=== PATIENT | female | born 1980 | race Caucasian/White ===

== ENCOUNTER 2018-08-28 09:56 | Emergency (ER) | payer OTHER ==
[~2018-08-28] VITALS: Ht 154.9 cm; Wt 104.3 kg
[~2018-08-28 09:56] MED LIST: FLEXERIL5 MG PO; NKHM; PEN-VEE K500 MG PO; ROBAXIN750 MG PO; TRAMADOL HCL50 MG PO; VOLTAREN50 M1 PO
[2018-08-28] MEDS ORDERED: KETOROLAC10 MG PO (12:02)
[2018-08-28] MEDS ORDERED: CYCLOBENZAPRINE5 M3 PO (12:02)
== END 2018-08-28 12:29 | disposition home or self-care (01) ==
LOC: ED 09:56
DX: S39.012A Strain of muscle, fascia and tendon of lower back, initial encounter (principal); S29.012A Strain of muscle and tendon of back wall of thorax, initial encounter; F17.200 Nicotine dependence, unspecified, uncomplicated; Z88.6 Allergy status to analgesic agent; W17.2XXA Fall into hole, initial encounter; Y93.89 Activity, other specified; Y92.89 Other specified places as the place of occurrence of the external cause; Y99.8 Other external cause status

== ENCOUNTER 2023-09-24 08:44 | Emergency (ER) | payer OTHER ==
[~2023-09-24] VITALS: Ht 165.1 cm; Wt 113.4 kg
[~2023-09-24 08:44] MED LIST changes: +CYCLOBENZAPRINE5 M3 PO; +KETOROLAC10 MG PO
[2023-09-24] MEDS ORDERED: AMOX-CLAV 875-1 EACH PO (09:21)
[2023-09-24] MEDS ORDERED: MELOXICAM15 MG PO (09:21)
== END 2023-09-24 09:25 | disposition home or self-care (01) ==
LOC: ED 08:44
DX: K04.7 Periapical abscess without sinus (principal); K02.9 Dental caries, unspecified; R22.9 Localized swelling, mass and lump, unspecified; F17.290 Nicotine dependence, other tobacco product, uncomplicated; Z88.6 Allergy status to analgesic agent; Z98.890 Other specified postprocedural states

== ENCOUNTER 2024-04-18 17:34 | Emergency (ER) | payer OTHER ==
[~2024-04-18] VITALS: Ht 165.1 cm; Wt 1315.4 kg
[~2024-04-18 17:34] MED LIST changes: +AMOX-CLAV 875-1 EACH PO; +MELOXICAM15 MG PO
[2024-04-18] MEDS ORDERED: LISINOPRIL10 M1 PO (17:59)
== END 2024-04-18 18:32 | disposition home or self-care (01) ==
LOC: ED 17:34
DX: I10 Essential (primary) hypertension (principal); Z88.6 Allergy status to analgesic agent; Z98.890 Other specified postprocedural states

== ENCOUNTER 2024-12-09 15:24 | Emergency (ER) | payer SELFPAY ==
[~2024-12-09] VITALS: Wt 108.9 kg
[~2024-12-09 15:24] MED LIST changes: +LISINOPRIL10 M1 PO
[2024-12-09] MEDS ORDERED: PENICILLIN VK500 MG PO (16:00)
[2024-12-09] MEDS ORDERED: PENICILLIN V POTASSIUM 500 MG TAB PO ONE (16:05)
== END 2024-12-09 16:12 | disposition home or self-care (01) ==
LOC: ED 15:24
DX: K08.89 Other specified disorders of teeth and supporting structures (principal); I10 Essential (primary) hypertension; Z98.890 Other specified postprocedural states; Z88.6 Allergy status to analgesic agent